=== PATIENT | female | born 1980 | race Caucasian/White ===

== ENCOUNTER 2017-02-28 22:26 | Emergency (ER) | payer SELFPAY ==
[2017-02-28 22:39] VITALS: TEMP 98.3
[2017-02-28] MEDS ORDERED: Sodium Chloride 0.9% 1,000 ML IV STA (22:43)
--- NOTE | 2017-02-28 22:48 | ED PDOC ---
Arrival/HPI - General Chief Complaint: Abdominal Pain Time Seen by Provider: 02/28/17 22:34 Historian: Patient - History of Present Illness Narrative History of Present Illness (Text): 02/28/17 22:45 36 y/o female, no significant pmh, nkda, c/o rt. upper quadrant and flank pain x 2 weeks. On and off, aching pain, aggravated by movement, no numbness or tingling, no chest pain or shortness of breath, no night sweat, no rash, no other medical or psychological complaints. Past Medical History - Provider Review Nursing Documentation Reviewed: Yes - Past History Past History: No Previous - Infectious Disease Hx of Infectious Diseases: None - Psychiatric Hx Psychophysiologic Disorder: No Hx Substance Use: No - Anesthesia Hx Anesthesia: No Family/Social History - Physician Review Nursing Documentation Reviewed: Yes Family/Social History: Unknown Family HX Smoking Status: Never Smoked Hx Alcohol Use: No Hx Substance Use: No Allergies/Home Meds Allergies/Adverse Reactions: Allergies No Known Allergies Allergy (Verified 02/28/17 22:35) Review of Systems - Review of Systems Constitutional: absent: Fatigue, Fevers Eyes: absent: Vision Changes ENT: absent: Hearing Changes Respiratory: absent: SOB, Cough Cardiovascular: absent: Chest Pain Gastrointestinal: Abdominal Pain. absent: Diarrhea, Nausea, Vomiting Skin: absent: Rash, Pruritis, Skin Lesions Physical Exam Vital Signs Reviewed: Yes Vital Signs Temp Pulse Resp BP Pulse Ox 03/01/17 01:21 61 16 136/78 98 02/28/17 23:45 75 16 130/72 98 02/28/17 22:35 98.3 F 67 17 148/93 H 98 Temperature: Afebrile Blood Pressure: Hypertensive Pulse: Regular Respiratory Rate: Normal Appearance: Positive for: Well-Appearing, Non-Toxic, Comfortable Pain Distress: Mild Mental Status: Positive for: Alert and Oriented X 3 - Systems Exam Head: Present: Atraumatic, Normocephalic Pupils: Present: PERRL Extroacular Muscles: Present: EOMI Conjunctiva: Present: Normal Mouth: Present: Moist Mucous Membranes Neck: Present: Normal Range of Motion Respiratory/Chest: Present: Clear to Auscultation, Good Air Exchange. No: Respiratory Distress, Accessory Muscle Use Cardiovascular: Present: Regular Rate and Rhythm, Normal S1, S2. No: Murmurs Abdomen: Present: Normal Bowel Sounds. No: Tenderness (mild epigastric tenderness), Distention, Peritoneal Signs, Rebound, Guarding Back: Present: Normal Inspection Upper Extremity: Present: Normal Inspection. No: Cyanosis, Edema Lower Extremity: Present: Normal Inspection. No: Edema Neurological: Present: GCS=15, Speech Normal, Motor Func Grossly Intact, Gait Normal, Memory Normal Skin: Present: Warm, Dry, Normal Color. No: Rashes Psychiatric: Present: Alert, Oriented x 3, Normal Insight, Normal Concentration Medical Decision Making ED Course and Treatment: 02/28/17 22:47 -labs/ua -gall bladder sonogram -IVF/pepcid -Observe and reassess 03/01/17 01:15 -Labs are non-significant except wbc mildly elevated, afebrile, likely pain induced. -UA show no UTI -Sonogram show no acute cholecystitis but there is gallstone with mildly biliary duct dilation which correlate with the LFTs. LFTs and bili levels within normal limit. I advised the patient to return to the ER if she has any worsening signs or symptoms. -Pain relief with the toradol. I explained to the patient that she will need outpatient further evaluation and treatment by the GI and general surgeon. Pt. stated that she would like pain med but doesn't like NSAIDs. Case discussed with Dr. Hardin including sonogram report and labs, he agreed on the diagnosis/ treatment and discharge plan. I checked the [facility] report with no signs of drug abuse. -Discharge home with ultracet, low fat diet, follow up with your own pmd and general surgeon/GI within 2 days, return to the ER for any new or worsening signs or symptoms. - Lab Interpretations Lab Results: 02/28/17 22:50 02/28/17 22:50 Lab Results 02/28/17 22:50: Sodium 139, Potassium 3.9, Chloride 103, Carbon Dioxide 27, Anion Gap 13, BUN 14, Creatinine 0.7, Est GFR ( Amer) > 60, Est GFR (Non- Af Amer) > 60, Random Glucose 100, Calcium 10.2, Total Bilirubin 0.5, AST 29, ALT 25, Alkaline Phosphatase 72, Total Protein 7.8, Albumin 4.3, Globulin 3.5, Albumin/Globulin Ratio 1.2, Lipase 47 02/28/17 22:50: Urine Color Yellow, Urine Appearance Clear, Urine pH 6.5, Ur Specific [place] 1.020, Urine Protein Negative, Urine Glucose (UA) Negative, Urine Ketones Negative, Urine Blood Trace-intact H, Urine Nitrate Negative, Urine Bilirubin Negative, Urine Urobilinogen 0.2, Ur Leukocyte Esterase Negative , Urine RBC 0 - 2, Urine WBC 0 - 2, Ur Epithelial Cells 1 - 3, Urine Bacteria Few 02/28/17 22:50: WBC 11.4 H D, RBC 4.03, Hgb 11.4 L, Hct 34.1 L, MCV 84.6, MCH 28.3, MCHC 33.4, RDW 13.9, Plt Count 328, MPV 10.6, Gran % 60.4, Lymph % (Auto) 29.1, [place] % (Auto) 5.6, Eos % (Auto) 4.7, Baso % (Auto) 0.2, Gran # 6.87 H, Lymph # 3.3, [place] # 0.6, Eos # 0.5, Baso # 0.02 - RAD Interpretation Radiology Orders: 02/28/17 22:43 GALLBLADDER & COMMON DUCT [US] Stat 03/01/17 00:51 CHEST PORTABLE [RAD] Stat no active pulmonary disease. Signal Tester: Radiologist - Medication Orders Current Medication Orders: Discontinued Medications Famotidine (Pepcid) 20 mg IVP STAT STA Stop: 02/28/17 22:44 Last Admin: 02/28/17 22:57 Dose: 20 mg Sodium Chloride (Sodium Chloride 0.9%) 1,000 mls @ 999 mls/hr IV .Q1H1M STA Stop: 02/28/17 23:43 Last Admin: 02/28/17 22:55 Dose: 999 mls/hr Ketorolac Tromethamine (Toradol) 30 mg IVP STAT STA Stop: 03/01/17 00:43 Last Admin: 03/01/17 00:54 Dose: 30 mg Tramadol/Acetaminophen (Ultracet 37.5/325 Mg) 2 tab PO STAT STA Stop: 03/01/17 01:22 Last Admin: 03/01/17 01:29 Dose: 2 tab - PA / PROGRAM ASSOCIATE / Resident Statement / has reviewed & agrees with the documentation as recorded. Disposition/Present on Arrival - Present on Arrival Any Indicators Present on Arrival: No History of DVT/PE: No History of Uncontrolled Diabetes: No Urinary Catheter: No History of Decub. Ulcer: No History Surgical Site Infection Following: None - Disposition Have Diagnosis and Disposition been Completed?: Yes Diagnosis: Cholelithiasis Disposition: HOME/ ROUTINE Disposition Time: : Patient Plan: Discharge Condition: GOOD Additional Instructions: Discharge home with ultracet,pepcid, low fat diet, follow up with your own pmd and general surgeon/GI within 2 days, return to the ER for any new or worsening signs or symptoms. Prescriptions: Famotidine [Pepcid] 20 mg PO BID #14 tab traMADol/Acetaminophen [Ultracet 325 MG-37.5 MG] 1 tab PO Q6 PRN #15 tab PRN Reason: Pain Referrals: Bobby Gomez MD [Medical Doctor] - Follow up with primary Kashif Singleton MD [Staff Provider] - Follow up with primary [facility] [Outside] - Follow up with primary Forms: WORK NOTE
[2017-02-28 22:57] LABS: ADD MANUAL DIFF? NO
[2017-02-28 23:06] LABS: BASO # 0.02 K/mm3 (0.0-2.0); BASO % 0.2 % (0.0-3.0); EOS # 0.5 (0.0-0.7); EOS % 4.7 % (1.5-5.0); GRAN # 6.87 (1.4-6.5); GRAN % 60.4 % (50.0-68.0); HEMATOCRIT 34.1 % (36.0-48.0); LYMPH # 3.3 (1.2-3.4); LYMPH % 29.1 % (22.0-35.0); MEAN CELL VOLUME 84.6 fL (80.0-105.0); MEAN CORPUSCULAR HEMOGLOBIN 28.3 pg (25.0-35.0); MEAN CORPUSCULAR HGB CONC 33.4 g/dl (31.0-37.0); MEAN PLATELET VOLUME 10.6 fl (7.0-11.0); MONO # 0.6 (0.1-0.6); MONO % 5.6 % (1.0-6.0); PLATELET COUNT 328 10^3/uL (120.0-450.0); RED CELL DISTRIBUTION WIDTH 13.9 % (11.5-14.5); WHITE BLOOD COUNT 11.4 10^3/ul (4.5-11.0)
[2017-02-28 23:08] LABS: PH,URINE 6.5 (4.7-8.0); URINE BILIRUBIN NEGATIVE (NEGATIVE); URINE BLOOD TRACE-INTACT (NEGATIVE); URINE GLUCOSE (UA) NEGATIVE (NEGATIVE); URINE KETONE NEGATIVE (NEGATIVE); URINE LEUKOCYTE ESTERASE NEGATIVE Leu/uL (NEGATIVE); URINE PROTEIN NEGATIVE mg/dL (<30 mg/dL); URINE UROBILINOGEN 0.2 E.U./dL (<1 E.U./dL)
[2017-02-28 23:09] LABS: ALB/GLOB RATIO 1.2 (1.1-1.8); ALKALINE PHOSPHATASE 72 U/L (38-133); ALT/SGPT 25 U/L (7-56); AST/SGOT 29 U/L (15-39); BILIRUBIN,TOTAL 0.5 mg/dL (0.2-1.3); BLOOD UREA NITROGEN 14 mg/dL (7-21); CALCIUM 10.2 mg/dL (8.4-10.5); CARBON DIOXIDE 27 mmol/L (21-33); CHLORIDE 103 mmol/L (98-107); GFR AFRICAN-AMERICAN > 60; GLUCOSE,RANDOM 100 mg/dL (70-110); LIPASE 47 U/L (23-300); POTASSIUM 3.9 mmol/L (3.6-5.0); SODIUM 139 mmol/L (132-148); TOTAL PROTEIN 7.8 g/dL (5.8-8.3)
[2017-02-28 23:11] LABS: URINE APPEARANCE CLEAR (CLEAR); URINE COLOR YELLOW (YELLOW)
[2017-02-28 23:25] LABS: URINE BACTERIA FEW (NEG); URINE RBC 0 - 2 /hpf (0-2); URINE WBC 0 - 2 /hpf (0-6)
[2017-02-28 23:55] VITALS: RESP 16
[2017-03-01 00:25] VITALS: O2SAT 98
--- NOTE | 2017-03-01 00:40 | US ---
EXAM: US Abdomen Limited, Right Upper Quadrant CLINICAL HISTORY: 36 years old, female; Pain; Abdominal pain; Generalized; Additional info: Ruq pain TECHNIQUE: Real-time ultrasound of the right upper quadrant with image documentation. EXAM DATE/TIME: 02/28/2017 10:43 PM COMPARISON: No relevant prior studies available. FINDINGS: Gallbladder: Contains extensive small, shadowing gallstones. No significant gallbladder wall thickening noted. No evidence of pericholecystic fluid. Reportedly negative sonographic Chiang's sign. Common bile duct: Measures 7 mm in diameter (normal less than 6 mm). No common bile duct stones are visualized. Liver: Mildly enlarged, measuring 18.5 cm in length. Otherwise within normal limits in appearance. Normal flow seen in the main portal vein on color and Doppler imaging. Pancreas: Imaged portions appear unremarkable. Tail is obscured by gas. Right kidney: Within normal limits in appearance. Measures 10.8 cm in length. No evidence of hydronephrosis. IMPRESSION: Mild dilatation of the common bile duct, cause not identified. Recommend correlation with LFTs for laboratory evidence of biliary obstruction. Extensive gallstones. No sonographic evidence of acute cholecystitis. See above for remaining findings.
[2017-03-01] MEDS ORDERED: TraMADol/Apap 37.5/325 mg Tab PO STA (01:21)
[2017-03-01 01:22] VITALS: BP 136/78; PULSE 61
--- NOTE | 2017-03-01 10:21 | RAD ---
HISTORY: medical clearance COMPARISON: No prior. FINDINGS: LUNGS: The lungs are well inflated and clear. PLEURA: No significant pleural effusion identified, no pneumothorax apparent. CARDIOVASCULAR: Normal. OSSEOUS STRUCTURES: No significant abnormalities. VISUALIZED UPPER ABDOMEN: Normal. OTHER FINDINGS: None. IMPRESSION: No active pulmonary disease.
== END 2017-03-01 01:39 | disposition home or self-care (01) ==
LOC: ED 22:26
DX: K80.20 Calculus of gallbladder without cholecystitis without obstruction (principal)
CPT/HCPCS: 71010; 76705; 80053; 81001; 83690; 85025; 96374; 96375; 99283; J1885; J7040